=== PATIENT | female | born 1960 | race Caucasian/White ===

== ENCOUNTER 2016-08-13 07:11 | Outpatient (CLI) | payer OTHER | END 2016-08-13 07:12 | disposition home or self-care (01) | DX: E11.9 Type 2 diabetes mellitus without complications (principal); E55.9 Vitamin D deficiency, unspecified; Z79.899 Other long term (current) drug therapy ==

== ENCOUNTER 2016-10-27 09:28 | Outpatient (CLI) | payer OTHER | END 2016-10-27 09:29 | disposition home or self-care (01) | DX: R73.9 Hyperglycemia, unspecified (principal) ==

== ENCOUNTER 2016-11-19 08:03 | Outpatient (CLI) | payer OTHER ==
[2016-11-19 08:42] LABS: ALBUMIN/GLOBULIN RATIO 1.4 (1.0-2.2); BILIRUBIN,TOTAL 0.6 mg/dL (0.2-1.0); CALCIUM 9.2 mg/dL (8.5-10.3); CREATININE 0.5 mg/dL (0.4-1.0); TOTAL PROTEIN 6.8 g/dL (6.7-8.2)
[2016-11-19 09:38] LABS: HEMOGLOBIN A1C 1.21 g/dL
== END 2016-11-19 08:04 | disposition home or self-care (01) ==
LOC: LAB 08:03
PROVIDERS: ATTEND Physician Assistant Medical
DX: E11.65 Type 2 diabetes mellitus with hyperglycemia (principal); Z79.899 Other long term (current) drug therapy
CPT/HCPCS: 36415; 80053; 83036

== ENCOUNTER 2017-02-25 09:30 | Outpatient (CLI) | payer OTHER ==
[2017-02-25 10:00] LABS: BASOPHILS # (AUTO) 0.1 10^3/uL (0.0-0.1); BASOPHILS % (AUTO) 1.4 %; EOSINOPHILS # (AUTO) 0.2 10^3/uL (0.0-0.7); EOSINOPHILS % (AUTO) 3.1 %; HCT - HEMATOCRIT 46.2 % (37.0-47.0); LYMPHOCYTES # (AUTO) 2.1 10^3/uL (1.5-3.5); LYMPHOCYTES % (AUTO) 27.7 %; MEAN CORPUSCULAR HEMOGLOBIN 30.5 pg (27.0-31.0); MEAN CORPUSCULAR HGB CONC 34.6 g/dL (32.0-36.0); MEAN CORPUSCULAR VOLUME 88.1 fL (81.0-99.0); MEAN PLATELET VOLUME 7.4 fL (7.9-10.8); MONOCYTES # (AUTO) 0.6 10^3/uL (0.0-1.0); MONOCYTES % (AUTO) 7.3 %; NEUTROPHILS # (AUTO) 4.6 10^3/uL (1.5-6.6); NEUTROPHILS % (AUTO) 60.5 %; NUCLEATED RED BLOOD CELLS AUTO 0.2 /100WBC; RED BLOOD COUNT 5.25 10^6/uL (4.20-5.40); RED CELL DISTRIBUTION WIDTH 12.6 % (12.0-15.0); UNCORRECTED WHITE BLOOD COUNT 7.6 x10^3/uL; WHITE BLOOD COUNT 7.6 x10^3/uL (4.8-10.8)
[2017-02-25 10:21] LABS: ALBUMIN/GLOBULIN RATIO 1.6 (1.0-2.2); BILIRUBIN,TOTAL 0.7 mg/dL (0.2-1.0); BUN - BLOOD UREA NITROGEN 15 mg/dL (6-20); CALCIUM 9.2 mg/dL (8.5-10.3); CARBON DIOXIDE - CO2 27 mmol/L (21-32); CHLORIDE 104 mmol/L (101-111); CHOL/HDL RATIO 7.9 (<4.4); CHOLESTEROL 275 mg/dL; CREATININE 0.5 mg/dL (0.4-1.0); GFR - MDRD 128 (>89); GLUCOSE 117 mg/dL (70-100); HDL CHOLESTEROL 35 mg/dL; LDL/HDL RATIO 5.1 (<4.4); POTASSIUM 3.8 mmol/L (3.5-5.0); SODIUM 140 mmol/L (135-145); TOTAL PROTEIN 6.9 g/dL (6.7-8.2); TRIGLYCERIDES 303 mg/dL; VLDL CHOLESTEROL 61 mg/dL
[2017-02-25 10:26] LABS: HEMOGLOBIN A1C 0.72 g/dL
== END 2017-02-25 09:31 | disposition home or self-care (01) ==
LOC: LAB 09:30
PROVIDERS: ATTEND Physician Assistant Medical
DX: Z00.00 Encounter for general adult medical examination without abnormal findings (principal); E55.9 Vitamin D deficiency, unspecified; E11.9 Type 2 diabetes mellitus without complications; Z79.899 Other long term (current) drug therapy; F32.9 Major depressive disorder, single episode, unspecified; E78.2 Mixed hyperlipidemia
CPT/HCPCS: 36415; 80053; 80061; 82306; 83036; 84443; 85025

== ENCOUNTER 2017-07-03 16:34 | Outpatient (CLI) | payer OTHER ==
[2017-07-03 17:09] LABS: BASOPHILS # (AUTO) 0.1 10^3/uL (0.0-0.1); BASOPHILS % (AUTO) 1.4 %; EOSINOPHILS # (AUTO) 0.2 10^3/uL (0.0-0.7); EOSINOPHILS % (AUTO) 3.1 %; HGB - HEMOGLOBIN 15.4 g/dL (12.0-16.0); LYMPHOCYTES # (AUTO) 2.9 10^3/uL (1.5-3.5); LYMPHOCYTES % (AUTO) 36.8 %; MEAN CORPUSCULAR HEMOGLOBIN 30.4 pg (27.0-31.0); MEAN CORPUSCULAR HGB CONC 34.1 g/dL (32.0-36.0); MEAN CORPUSCULAR VOLUME 89.1 fL (81.0-99.0); MEAN PLATELET VOLUME 7.5 fL (7.9-10.8); MONOCYTES # (AUTO) 0.6 10^3/uL (0.0-1.0); MONOCYTES % (AUTO) 7.5 %; NEUTROPHILS # (AUTO) 4.1 10^3/uL (1.5-6.6); NEUTROPHILS % (AUTO) 51.2 %; PLT - PLATELET COUNT 208 10^3/uL (130-450); RED BLOOD COUNT 5.08 10^6/uL (4.20-5.40); RED CELL DISTRIBUTION WIDTH 12.6 % (12.0-15.0); WHITE BLOOD COUNT 7.9 x10^3/uL (4.8-10.8)
== END 2017-07-03 16:35 | disposition home or self-care (01) ==
LOC: LAB 16:34
PROVIDERS: ATTEND Physician Assistant Medical
DX: R07.89 Other chest pain (principal); R05 Cough; R10.13 Epigastric pain
CPT/HCPCS: 83690; 84484; 85025

== ENCOUNTER 2017-07-03 17:45 | Outpatient (CLI) | payer OTHER ==
--- NOTE | 2017-07-03 18:35 | XRAY Preliminary Report ---
Exam: XR CHEST 2 VIEW X-RAY IMPRESSION: Normal 2-view chest radiography. [facility] SITE ID: [id number]
--- NOTE | 2017-07-03 18:56 | XRAY Report ---
EXAM: CHEST RADIOGRAPHY EXAM DATE: 07/03/2017 05:54 PM. CLINICAL HISTORY: Nonproductive cough for one week. Intermittent chest pain since 0200 today. COMPARISON: 09/27/2008. TECHNIQUE: 2 views. FINDINGS: Lungs/Pleura: No focal opacities evident. No pleural effusion. No pneumothorax. Normal volumes. Mediastinum: Heart and mediastinal contours are unremarkable. Other: None. IMPRESSION: Normal 2-view chest radiography. [facility] Referring Provider Line: [phone] SITE ID: [id number]
== END 2017-07-03 17:46 | disposition home or self-care (01) ==
LOC: DI 17:45
PROVIDERS: ATTEND Physician Assistant Medical
DX: R07.89 Other chest pain (principal); F17.210 Nicotine dependence, cigarettes, uncomplicated; R05 Cough; R10.13 Epigastric pain
CPT/HCPCS: 71046; 83690; 84484; 85025

== ENCOUNTER 2017-07-05 15:17 | Emergency (ER) | payer OTHER ==
[2017-07-05 15:31] VITALS: BP 132/70
[2017-07-05] MEDS ORDERED: DEXAMETHASONE 10 MG/ML VIAL PO STA (15:55)
--- NOTE | 2017-07-05 16:06 | ED Physician Documentation ---
History of Present Illness - Stated complaint Stated Complaint: LIP SWELLING - Chief complaint Chief Complaint: General - History obtained from History obtained from: Patient - History of Present Illness Timing: Today, How many hours ago (5) Pain level max: 0 Pain level now: 0 Improved by: benadryl Worsened by: nothing - Additonal information Additional information: Patient is a 57-year-old female who presents to the emergency department with left lower lip swelling that started at approximately 11:30 AM today. Took Benadryl and it has not worsened. Stated last time she needed steroids. Unclear etiology. She is scheduled for endoscopy as a Inc. that she may have angioedema in her esophagus as well. She is not having any difficulty swallowing. No difficulty breathing. 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 HEENT: Tonsil/Adenoidectomy - Present Medications Home Medications: Ambulatory Orders Medication Instructions Recorded Confirmed Escitalopram Oxalate [Lexapro] 20 mg PO DAILY 03/14/14 07/05/17 Metoprolol Succinate [Toprol Xl] 25 mg PO BID 03/14/14 07/05/17 metFORMIN [Glucophage] 250 mg PO ACHS 03/14/14 07/05/17 Alprazolam [Xanax] 0.25 mg PO BID PRN 06/17/16 07/05/17 Aspirin 81 mg PO DAILY 06/17/16 07/05/17 Cholecalciferol (Vitamin D3) 8,000 unit PO DAILY 06/17/16 07/05/17 [Vitamin D] Epinephrine [Epipen 2-Matias] 0.3 mg IJ ONCE PRN 06/17/16 07/05/17 Omeprazole 10 - 20 mg PO DAILY 06/17/16 07/05/17 Sucralfate [Carafate] 07/05/17 predniSONE [Prednisone] 40 mg PO DAILY #10 tablet 07/05/17 - Allergies Allergies/Adverse Reactions: Allergies Allergy/AdvReac Type Severity Reaction Status Date / Time ciprofloxacin [From Cipro] Allergy Itching Verified 03/17/14 06:51 ciprofloxacin HCl * Allergy Itching Verified 03/17/14 06:51 [From Cipro] furosemide [From Lasix] Allergy Anaphylaxis Verified 03/17/14 06:51 olive oil Allergy Hives Verified 04/28/17 06:03 peanut Allergy Anaphylaxis Verified 03/17/14 06:51 Penicillins Allergy Hives Verified 03/17/14 06:51 shellfish derived Allergy Hives Verified 03/17/14 06:51 ibuprofen AdvReac Headache Verified 03/17/14 06:51 ct contrast Allergy Anaphylaxis Uncoded 03/17/14 06:51 - Social History Does the pt smoke?: Yes Smoking Status: Current every day smoker Does the pt drink ETOH?: No Does the pt have substance abuse?: No - Immunizations Immunizations are current?: Yes PD ED PE NORMAL - Vitals Vital signs reviewed: Yes - General General: Alert and oriented X 3, No acute distress - HEENT HEENT: Moist mucous membranes, Other (swelling L lower lip. normal intraoral exam. normal phonation. no stridor. no tongue swelling.) - Neck Neck: Supple, no meningeal sign - Cardiac Cardiac: RRR - Respiratory Respiratory: No respiratory distress, Clear bilaterally - Derm Derm: Warm and dry - Neuro Neuro: Alert and oriented X 3 - Psych Psych: Normal mood, Normal affect Results - Vitals Vitals: Vital Signs - 24 hr 07/05/17 15:25 Temperature 36.5 C Heart Rate 74 Respiratory 20 Rate Blood Pressure 132/70 H O2 Saturation 97 Oxygen O2 Source Room air PD MEDICAL DECISION MAKING - ED course Complexity details: considered differential, d/w patient ED course: Patient is a 57-year-old female with isolated swelling to left lower lip. Took Benadryl prior to arrival. Given Decadron here. No progression of symptoms. Will place on steroids for the next few days and have her follow-up with her doctor. She will return if she worsens. Patient counseled regarding signs and symptoms for which I believe and urgent re-evaluation would be necessary. Patient with good understanding of and agreement to plan and is comfortable going home at this time This document was made in part using voice recognition software. While efforts are made to proofread this document, sound alike and grammatical errors may occur. Departure - Departure Disposition: 01 Home, Self Care Clinical Impression: Angioedema Qualifiers: Encounter type: initial encounter Qualified Code(s): T78.3XXA - Angioneurotic edema, initial encounter Condition: Good Instructions: ED Angioedema Follow-Up: Madalyn Butts PA-C [Primary Care Provider] - Within 1 week Prescriptions: predniSONE [Prednisone] 40 mg PO DAILY #10 tablet Comments: Return if you worsen. the cause of your symptoms is unclear today.
[2017-07-05] MEDS ORDERED: CHERRY SYRUP 10 ML UDC PO ONE (16:08)
== END 2017-07-05 16:09 | disposition home or self-care (01) ==
LOC: ED 15:17
DX: T78.3XXA Angioneurotic edema, initial encounter (principal); E11.9 Type 2 diabetes mellitus without complications; Z79.84 Long term (current) use of oral hypoglycemic drugs; F17.200 Nicotine dependence, unspecified, uncomplicated; Z79.82 Long term (current) use of aspirin
CPT/HCPCS: 99283; A9270

== ENCOUNTER 2017-07-12 19:14 | Emergency (ER) | payer OTHER ==
[2017-07-12] MEDS ORDERED: LIDOCAINE 2%-EPI 1:100000 20 ML MDV SUBQ STA (21:36)
[2017-07-12] MEDS ORDERED: SULFAMETH/TRIMETH DS 800/160 MG TABLET PO STA (21:39)
[2017-07-12 22:08] VITALS: BP 144/84
--- NOTE | 2017-07-12 22:09 | ED Physician Documentation ---
PD HPI SKIN - Stated complaint Stated Complaint: FEVER/SORE - Chief complaint Chief Complaint: Wound - History obtained from History obtained from: Patient - History of Present Illness Timing - onset: How many days ago (2) Timing - details: Gradual onset, Still present Location: Genitals Quality / character: Painful, Swelling Associated symptoms: Fever Similar symptoms before: Has not had sx before Recently seen: Not recently seen - Additional information Additional information: Patient is a 57 year old diabetic female who is presenting to the emergency department for labial swelling. patient states that it has been going on for the last couple of days and has become progressively worse. Patient states that she felt like she had a fever so she decided that she should come in and get it checked. Review of Systems Constitutional: reports: Fever. denies: Chills, Myalgias, Fatigue Eyes: reports: Reviewed and negative Ears: reports: Reviewed and negative Nose: reports: Reviewed and negative Throat: reports: Reviewed and negative Cardiac: denies: Chest pain / pressure, Palpitations Respiratory: reports: Reviewed and negative GI: denies: Abdominal Pain, Nausea, Vomiting : denies: Dysuria, Frequency, Vaginal bleeding Skin: reports: Lesions Neurologic: denies: Generalized weakness, Focal weakness Immunocompromised: reports: Immunocompromised PD PAST MEDICAL HISTORY - Past Medical History Cardiovascular: High cholesterol, Other Neuro: Headache/migraine Endocrine/Autoimmune: Type 2 diabetes GI: GERD Psych: Depression Musculoskeletal: Osteoarthritis, Chronic back pain - Past Surgical History 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 HEENT: Tonsil/Adenoidectomy - Present Medications Home Medications: Ambulatory Orders Medication Instructions Recorded Confirmed Escitalopram Oxalate [Lexapro] 20 mg PO DAILY 03/14/14 07/05/17 Metoprolol Succinate [Toprol Xl] 25 mg PO BID 03/14/14 07/05/17 metFORMIN [Glucophage] 250 mg PO ACHS 03/14/14 07/05/17 Alprazolam [Xanax] 0.25 mg PO BID PRN 06/17/16 07/05/17 Aspirin 81 mg PO DAILY 06/17/16 07/05/17 Cholecalciferol (Vitamin D3) 8,000 unit PO DAILY 06/17/16 07/05/17 [Vitamin D] Epinephrine [Epipen 2-Matias] 0.3 mg IJ ONCE PRN 06/17/16 07/05/17 Omeprazole 10 - 20 mg PO DAILY 06/17/16 07/05/17 Sucralfate [Carafate] 07/05/17 predniSONE [Prednisone] 40 mg PO DAILY #10 tablet 07/05/17 Sulfamethox/Trimeth 800/160 1 each PO BID #14 tablet 07/12/17 [Bactrim Ds 800/160] - Allergies Allergies/Adverse Reactions: Allergies Allergy/AdvReac Type Severity Reaction Status Date / Time ciprofloxacin [From Cipro] Allergy Itching Verified 03/17/14 06:51 ciprofloxacin HCl * Allergy Itching Verified 03/17/14 06:51 [From Cipro] furosemide [From Lasix] Allergy Anaphylaxis Verified 03/17/14 06:51 olive oil Allergy Hives Verified 04/28/17 06:03 omeprazole [From Prilosec] Allergy Anaphylaxis Verified 07/12/17 19:41 peanut Allergy Anaphylaxis Verified 03/17/14 06:51 Penicillins Allergy Hives Verified 03/17/14 06:51 shellfish derived Allergy Hives Verified 03/17/14 06:51 ibuprofen AdvReac Headache Verified 03/17/14 06:51 ct contrast Allergy Anaphylaxis Uncoded 03/17/14 06:51 - Social History Does the pt smoke?: Yes Smoking Status: Current every day smoker Does the pt drink ETOH?: No Does the pt have substance abuse?: No - Immunizations Immunizations are current?: Yes PD ED PE NORMAL - Vitals Vital signs reviewed: Yes - General General: Alert and oriented X 3, No acute distress - HEENT HEENT: Atraumatic, PERRL - Neck Neck: Supple, no meningeal sign - Cardiac Cardiac: RRR - Respiratory Respiratory: No respiratory distress - Abdomen Abdomen: Soft, Non tender, Non distended - Extremities Extremities: No deformity, Normal ROM s pain - Neuro Neuro: Alert and oriented X 3, No motor deficit, No sensory deficit, Normal speech - Psych Psych: Normal mood PD ED PE EXPANDED - Female Female : Skin lesions (tenderness, erythema and swelling of right labia majora ). No: Vaginal Bleeding, Vaginal Discharge Results - Vitals Vitals: Vital Signs - 24 hr 07/12/17 07/12/17 07/12/17 19:36 20:57 22:08 Temperature 36.6 C 36.6 C 37.0 C Heart Rate 102 H 101 H 102 H Respiratory 16 12 18 Rate Blood Pressure 127/75 147/89 H 144/84 H O2 Saturation 96 96 96 Oxygen O2 Source Room air - Labs Labs: Laboratory Tests 07/12/17 21:10 POC Whole Bld Glucose 153 H Procedures - Abscess I&D (location) right labia majora Preparation: Confirmed with ultrasound, Alcohol, Lidocaine 2 %, With epi Incision: Incised with scalpel, Purulent drainage, Irrigated Other: Pt tolerated well, Antibiotic prescribed PD MEDICAL DECISION MAKING - ED course Complexity details: reviewed old records, re-evaluated patient, considered differential, d/w patient ED course: Patient was seen and examined at bedside. Fingerstick was performed and was within normal limits. I/D was performed as described above. patient was started on bactrim. Patient required no further work up and was stable for discharge with outpatient follow up. Departure - Departure Disposition: 01 Home, Self Care Clinical Impression: Abscess Condition: Good Instructions: ED Abscess IandD Follow-Up: Madalyn Butts PA-C [Primary Care Provider] - Within 3 Days Prescriptions: Sulfamethox/Trimeth 800/160 [Bactrim Ds 800/160] 1 each PO BID #14 tablet Comments: Your symptoms today are being caused by a labial abscess. It was drained today and you were started on antibiotics. You should soak in a bath to aid in draining. You should follow up with your doctor for a wound check. You may return to the emergency department at any time for new, worsening or uncontrollable symptoms. Discharge Date/Time: 07/12/17 22:14
== END 2017-07-12 22:14 | disposition home or self-care (01) ==
LOC: ED 19:14
DX: N76.4 Abscess of vulva (principal); E11.9 Type 2 diabetes mellitus without complications; Z79.84 Long term (current) use of oral hypoglycemic drugs; F17.200 Nicotine dependence, unspecified, uncomplicated; Z79.82 Long term (current) use of aspirin
CPT/HCPCS: 56405; 99283; A9270

== ENCOUNTER 2017-07-24 07:49 | Day surgery (SDC) | payer OTHER ==
[2017-07-24] MEDS ORDERED: LACTATED RINGERS 1,000 ML IV ONE (08:15)
[2017-07-24] MEDS ORDERED: BENZOCAINE/TETRACAINE/BUTAMBEN SPRAY 56 GM TOP ONE (09:10)
[2017-07-24] MEDS ORDERED: MIDAZOLAM 2 MG/2 ML VIAL IVP ONE (09:23)
[2017-07-24] MEDS ORDERED: fentaNYL 100 MCG/2 ML VIAL IVP ONE (09:23)
[2017-07-24 09:49] VITALS: BP 116/70
== END 2017-07-24 07:50 | disposition home or self-care (01) ==
LOC: SDS 07:49
PROVIDERS: ATTEND Surgery
PROC: 0DB68ZX Excision of Stomach, Via Natural or Artificial Opening Endoscopic, Diagnostic (ICD-10-PCS; 2017-07-24)
PROC: 0DB58ZX Excision of Esophagus, Via Natural or Artificial Opening Endoscopic, Diagnostic (ICD-10-PCS; principal; 2017-07-24 09:00)
DX: R10.13 Epigastric pain (principal); K21.9 Gastro-esophageal reflux disease without esophagitis; R13.10 Dysphagia, unspecified; K25.9 Gastric ulcer, unspecified as acute or chronic, without hemorrhage or perforation; K20.9 Esophagitis, unspecified; F17.210 Nicotine dependence, cigarettes, uncomplicated; E11.9 Type 2 diabetes mellitus without complications; Z91.010 Allergy to peanuts; Z88.0 Allergy status to penicillin; Z91.013 Allergy to seafood
CPT/HCPCS: 43239; 87081; A9270; J7120; 80076

== ENCOUNTER 2017-12-16 11:10 | Outpatient (CLI) | payer OTHER ==
[2017-12-16 11:57] LABS: HB2 TOTAL 17.6 g/dL; HEMOGLOBIN A1C 0.69 g/dL; HEMOGLOBIN A1C % 5.7 % (4.6-6.2)
== END 2017-12-16 11:11 | disposition home or self-care (01) ==
LOC: LAB 11:10
PROVIDERS: ATTEND Physician Assistant Medical
DX: E11.9 Type 2 diabetes mellitus without complications (principal); Z79.899 Other long term (current) drug therapy
CPT/HCPCS: 36415; 82947; 83036

== ENCOUNTER 2018-03-10 10:10 | Outpatient (CLI) | payer OTHER ==
[2018-03-10 11:06] LABS: BASOPHILS # (AUTO) 0.1 10^3/uL (0.0-0.1); BASOPHILS % (AUTO) 1.1 %; EOSINOPHILS # (AUTO) 0.3 10^3/uL (0.0-0.7); EOSINOPHILS % (AUTO) 4.1 %; HGB - HEMOGLOBIN 15.3 g/dL (12.0-16.0); LYMPHOCYTES # (AUTO) 1.9 10^3/uL (1.5-3.5); LYMPHOCYTES % (AUTO) 28.3 %; MEAN CORPUSCULAR HEMOGLOBIN 31.2 pg (27.0-31.0); MEAN CORPUSCULAR HGB CONC 35.1 g/dL (32.0-36.0); MEAN CORPUSCULAR VOLUME 88.8 fL (81.0-99.0); MEAN PLATELET VOLUME 7.5 fL (7.9-10.8); MONOCYTES # (AUTO) 0.5 10^3/uL (0.0-1.0); NEUTROPHILS # (AUTO) 3.9 10^3/uL (1.5-6.6); NEUTROPHILS % (AUTO) 58.5 %; PLT - PLATELET COUNT 175 10^3/uL (130-450); RED CELL DISTRIBUTION WIDTH 12.9 % (12.0-15.0); WHITE BLOOD COUNT 6.7 x10^3/uL (4.8-10.8)
[2018-03-10 11:31] LABS: ALBUMIN 4.3 g/dL (3.2-5.5); ALBUMIN/GLOBULIN RATIO 1.5 (1.0-2.2); ALKALINE PHOSPHATASE 80 IU/L (42-121); ALT ALANINE AMINOTRANSFERASE 63 IU/L (10-60); AST ASPARTATE AMINOTRANSFERASE 49 IU/L (10-42); BILIRUBIN,TOTAL 0.5 mg/dL (0.2-1.0); BUN - BLOOD UREA NITROGEN 12 mg/dL (6-20); CALCIUM 9.2 mg/dL (8.5-10.3); CARBON DIOXIDE - CO2 30 mmol/L (21-32); CHLORIDE 103 mmol/L (101-111); CHOL/HDL RATIO 7.6 (<4.4); CHOLESTEROL 252 mg/dL; CREATININE 0.6 mg/dL (0.4-1.0); GFR - MDRD 103 (>89); GLUCOSE 117 mg/dL (70-100); HDL CHOLESTEROL 33 mg/dL; LDL CHOLESTEROL,CALCULATED 153 mg/dL; LDL/HDL RATIO 4.6 (<4.4); SODIUM 141 mmol/L (135-145); TOTAL PROTEIN 7.2 g/dL (6.7-8.2); VLDL CHOLESTEROL 66 mg/dL
[2018-03-10 11:37] LABS: HB2 TOTAL 15.9 g/dL; HEMOGLOBIN A1C 0.65 g/dL; HEMOGLOBIN A1C % 5.9 % (4.6-6.2)
== END 2018-03-10 10:11 | disposition home or self-care (01) ==
LOC: LAB 10:10
PROVIDERS: ATTEND Physician Assistant Medical
DX: E55.9 Vitamin D deficiency, unspecified (principal); E78.2 Mixed hyperlipidemia; E11.9 Type 2 diabetes mellitus without complications; Z79.899 Other long term (current) drug therapy; F32.9 Major depressive disorder, single episode, unspecified
CPT/HCPCS: 36415; 80053; 80061; 82306; 83036; 83721; 84443; 85025

== ENCOUNTER 2018-03-12 08:40 | Outpatient (CLI) | payer OTHER ==
[2018-03-12 11:13] LABS: BILIRUBIN,URINE NEGATIVE (NEGATIVE); GLUCOSE, URINE (UA) NEGATIVE (NEGATIVE); KETONES,URINE (UA) NEGATIVE (NEGATIVE); LEUKOCYTE ESTERASE, URINE NEGATIVE (NEGATIVE); NITRITE,URINE NEGATIVE (NEGATIVE); OCCULT BLOOD,URINE TRACE-INTA (NEGATIVE); PH,URINE 5.5 PH (5.0-7.5); PROTEIN,URINE NEGATIVE (NEGATIVE); UROBILINOGEN,URINE 0.2 (NORMAL) E.U./dL (NORMAL)
[2018-03-12 11:14] LABS: CLARITY,URINE CLEAR (CLEAR)
== END 2018-03-12 08:41 | disposition home or self-care (01) ==
LOC: LAB.R 08:40
PROVIDERS: ATTEND Physician Assistant Medical
DX: Z00.00 Encounter for general adult medical examination without abnormal findings (principal); E11.9 Type 2 diabetes mellitus without complications
CPT/HCPCS: 81001; 81003; 82043; 87086

== ENCOUNTER 2018-04-23 09:58 | Outpatient (CLI) | payer OTHER | END 2018-04-23 09:59 | disposition home or self-care (01) | LOC: SC 09:58 | PROVIDERS: ATTEND Internal Medicine Pulmonary Disease | DX: G47.10 Hypersomnia, unspecified (principal); R06.83 Snoring; G47.8 Other sleep disorders | CPT/HCPCS: 99203; 99212 ==

== ENCOUNTER 2018-05-20 18:56 | Outpatient (CLI) | payer OTHER | END 2018-05-20 18:57 | disposition home or self-care (01) | LOC: SC 18:56 | PROVIDERS: ATTEND Internal Medicine Pulmonary Disease | DX: G47.33 Obstructive sleep apnea (adult) (pediatric) (principal); G47.61 Periodic limb movement disorder | CPT/HCPCS: 95810 ==

== ENCOUNTER 2018-06-25 11:20 | Outpatient (CLI) | payer OTHER | END 2018-06-25 11:21 | disposition home or self-care (01) | LOC: SC 11:20 | PROVIDERS: ATTEND Internal Medicine Pulmonary Disease | DX: G47.33 Obstructive sleep apnea (adult) (pediatric) (principal) | CPT/HCPCS: 99212; 99213 ==

== ENCOUNTER 2018-06-30 10:20 | Outpatient (CLI) | payer BC ==
[2018-06-30 10:46] LABS: ALBUMIN 4.2 g/dL (3.2-5.5); BILIRUBIN,DIRECT 0.1 mg/dL (0.1-0.5); BILIRUBIN,TOTAL 0.8 mg/dL (0.2-1.0); TOTAL PROTEIN 7.3 g/dL (6.7-8.2)
[2018-06-30 11:16] LABS: HB2 TOTAL 17.2 g/dL; HEMOGLOBIN A1C 0.73 g/dL
== END 2018-06-30 10:21 | disposition home or self-care (01) ==
LOC: LAB 10:20
PROVIDERS: ATTEND Physician Assistant Medical
DX: E11.9 Type 2 diabetes mellitus without complications (principal); Z79.899 Other long term (current) drug therapy; R79.89 Other specified abnormal findings of blood chemistry
CPT/HCPCS: 36415; 80076; 82947; 83036

== ENCOUNTER 2018-07-05 15:38 | Outpatient (CLI) | payer BC ==
[2018-07-06 13:22] LABS: HEPATITIS A IGM NON-REACTIVE (NON-REACTIVE); HEPATITIS B CORE ANTIBODY IGM NON-REACTIVE (NON-REACTIVE); HEPATITIS B SURFACE ANTIGEN NON-REACTIVE (NON-REACTIVE); HEPATITIS C ANTIBODY NON-REACTIVE (NON-REACTIVE)
== END 2018-07-05 15:39 | disposition home or self-care (01) ==
LOC: LAB 15:38
PROVIDERS: ATTEND Physician Assistant Medical
DX: R79.89 Other specified abnormal findings of blood chemistry (principal)
CPT/HCPCS: 36415; 80074

== ENCOUNTER 2018-07-17 06:51 | Outpatient (CLI) | payer BC ==
--- NOTE | 2018-07-17 12:41 | Ultrasound Report ---
Reason: ELEVATED LFT'S Procedure Date: 07/17/2018 Accession Number: [id number] / [id number] Procedure: US - Abdomen Limited CPT Code: FULL RESULT: EXAM: ABDOMEN ULTRASOUND LIMITED, RUQ EXAM DATE: 07/17/2018 08:11 AM. CLINICAL HISTORY: Elevated liver function tests. COMPARISON: None. TECHNIQUE: Real-time scanning was performed with static images obtained. FINDINGS: Liver: Normal in size with increased echogenicity which limits evaluation for underlying masses though none is seen. There is focal fatty sparing near the gallbladder fossa which confirms hepatic steatosis. The right lobe of the liver measures at least 20 cm. Main portal vein flow: Hepatopetal. Gallbladder: Normal. No stones, wall thickening, or sonographic Mina's sign. Biliary System: CBD measures 4 mm. No intrahepatic or extrahepatic ductal dilatation. Other: None. IMPRESSION: Hepatic steatosis. [facility]
== END 2018-07-17 06:52 | disposition home or self-care (01) ==
LOC: DI 06:51
PROVIDERS: ATTEND Physician Assistant Medical
DX: K76.0 Fatty (change of) liver, not elsewhere classified (principal)
CPT/HCPCS: 76705

== ENCOUNTER 2018-09-11 15:41 | Outpatient (CLI) | payer BC | END 2018-09-11 15:42 | disposition home or self-care (01) | LOC: SC 15:41 | PROVIDERS: ATTEND Nurse Practitioner Family | DX: G47.33 Obstructive sleep apnea (adult) (pediatric) (principal) | CPT/HCPCS: 99212; 99213 ==

== ENCOUNTER 2018-10-04 15:41 | Outpatient (CLI) | payer BC ==
--- NOTE | 2018-10-05 10:28 | XRAY Report ---
Reason: DELTOID TENDINITIS Procedure Date: 10/04/2018 Accession Number: [id number] / [id number] Procedure: XR - Humerus RT CPT Code: FULL RESULT: EXAM: RIGHT HUMERUS RADIOGRAPHY EXAM DATE: 10/04/2018 05:08 PM. CLINICAL HISTORY: Deltoid tendinitis. COMPARISON: None. TECHNIQUE: 2 views. FINDINGS: Bones: Normal. No fractures or bone lesions. Joints: Normal. No effusions or subluxations in the visualized shoulder or elbow joints. Soft Tissues: No abnormal soft tissue calcifications are detected. No soft tissue swelling. IMPRESSION: Normal humerus radiography. [facility]
== END 2018-10-04 15:42 | disposition home or self-care (01) ==
LOC: DI 15:41
PROVIDERS: ATTEND Family Medicine
DX: M75.81 Other shoulder lesions, right shoulder (principal)

== ENCOUNTER 2018-12-19 15:49 | Outpatient (CLI) | payer BC | END 2018-12-19 15:50 | disposition home or self-care (01) | LOC: SC 15:49 | PROVIDERS: ATTEND Nurse Practitioner Family | DX: G47.33 Obstructive sleep apnea (adult) (pediatric) (principal) | CPT/HCPCS: 99212; 99214 ==

== ENCOUNTER 2019-05-12 10:18 | Outpatient (CLI) | payer BC ==
[2019-05-12 10:58] LABS: BASOPHILS # (AUTO) 0.1 10^3/uL (0.0-0.1); BASOPHILS % (AUTO) 1.1 %; EOSINOPHILS # (AUTO) 0.2 10^3/uL (0.0-0.7); EOSINOPHILS % (AUTO) 2.7 %; HGB - HEMOGLOBIN 15.6 g/dL (12.0-16.0); LYMPHOCYTES # (AUTO) 1.9 10^3/uL (1.5-3.5); LYMPHOCYTES % (AUTO) 28.6 %; MEAN CORPUSCULAR HEMOGLOBIN 30.1 pg (27.0-31.0); MEAN CORPUSCULAR HGB CONC 34.2 g/dL (32.0-36.0); MEAN PLATELET VOLUME 9.8 fL (7.9-10.8); MONOCYTES # (AUTO) 0.5 10^3/uL (0.0-1.0); MONOCYTES % (AUTO) 6.8 %; NEUTROPHILS % (AUTO) 60.2 %; PLT - PLATELET COUNT 158 10^3/uL (130-450); RED BLOOD COUNT 5.18 10^6/uL (4.20-5.40); RED CELL DISTRIBUTION WIDTH 11.9 % (12.0-15.0); WHITE BLOOD COUNT 6.6 x10^3/uL (4.8-10.8)
[2019-05-12 11:17] LABS: ALBUMIN 4.2 g/dL (3.2-5.5); ALBUMIN/GLOBULIN RATIO 1.4 (1.0-2.2); ALKALINE PHOSPHATASE 99 IU/L (42-121); ALT ALANINE AMINOTRANSFERASE 95 IU/L (10-60); AST ASPARTATE AMINOTRANSFERASE 105 IU/L (10-42); BILIRUBIN,TOTAL 0.8 mg/dL (0.2-1.0); BUN - BLOOD UREA NITROGEN 11 mg/dL (6-20); CALCIUM 9.3 mg/dL (8.5-10.3); CARBON DIOXIDE - CO2 27 mmol/L (21-32); CHLORIDE 100 mmol/L (101-111); CHOL/HDL RATIO 8.9 (<4.4); CHOLESTEROL 285 mg/dL; CREATININE 0.7 mg/dL (0.4-1.0); GFR - MDRD 86 (>89); GLUCOSE 260 mg/dL (70-100); HDL CHOLESTEROL 32 mg/dL; SODIUM 138 mmol/L (135-145); TOTAL PROTEIN 7.3 g/dL (6.7-8.2)
[2019-05-12 11:35] LABS: LDL CHOLESTEROL,DIRECT 175 mg/dL; LDLD/HDL RATIO 5.5 (<4.4)
[2019-05-12 12:05] LABS: HB2 TOTAL 15.8 g/dL; HEMOGLOBIN A1C 1.26 g/dL; HEMOGLOBIN A1C % 9.4 % (4.6-6.2)
[2019-05-12 13:02] LABS: THYROID STIMULATING HORMONE 0.96 uIU/mL (0.34-5.60)
[2019-05-12 13:05] LABS: FREE T4 (FREE THYROXINE) 0.77 ng/dL (0.58-1.64)
== END 2019-05-12 10:19 | disposition home or self-care (01) ==
LOC: LAB 10:18
PROVIDERS: ATTEND Family Medicine
DX: G47.33 Obstructive sleep apnea (adult) (pediatric) (principal); E11.9 Type 2 diabetes mellitus without complications; E66.3 Overweight; K21.9 Gastro-esophageal reflux disease without esophagitis; E55.9 Vitamin D deficiency, unspecified; E78.2 Mixed hyperlipidemia
CPT/HCPCS: 36415; 80053; 80061; 82306; 83036; 83721; 84439; 84443; 84481; 85025

== ENCOUNTER 2019-05-31 14:52 | Outpatient (CLI) | payer BC | END 2019-05-31 14:53 | disposition home or self-care (01) | LOC: RT 14:52 | PROVIDERS: ATTEND Internal Medicine Gastroenterology | DX: I49.3 Ventricular premature depolarization (principal); E11.9 Type 2 diabetes mellitus without complications | CPT/HCPCS: 93005 ==

== ENCOUNTER 2019-06-11 07:15 | Day surgery (SDC) | payer BC ==
[2019-06-11] MEDS ORDERED: MIDAZOLAM 2 MG/2 ML VIAL IVP ONE (07:16)
[2019-06-11] MEDS ORDERED: fentaNYL 250 MCG/5 ML VIAL IVP ONE (07:16)
[2019-06-11] MEDS ORDERED: LACTATED RINGERS 1,000 ML IV ONE (07:20)
[2019-06-11] MEDS ORDERED: LIDO GARGLE 30 ML BOTTLE ONE (09:21)
[2019-06-11] MEDS ORDERED: LIDO GARGLE 30 ML BOTTLE PO ONE (09:33)
[2019-06-11 11:15] VITALS: BP 111/80
== END 2019-06-11 07:16 | disposition home or self-care (01) ==
LOC: SDS 07:15
PROVIDERS: ATTEND Internal Medicine Gastroenterology
PROC: 0DB98ZZ Excision of Duodenum, Via Natural or Artificial Opening Endoscopic (ICD-10-PCS; 2019-06-11)
PROC: 0DB48ZZ Excision of Esophagogastric Junction, Via Natural or Artificial Opening Endoscopic (ICD-10-PCS; 2019-06-11)
PROC: 0DBN8ZZ Excision of Sigmoid Colon, Via Natural or Artificial Opening Endoscopic (ICD-10-PCS; principal; 2019-06-11 08:30)
PROC: 0DBL8ZZ Excision of Transverse Colon, Via Natural or Artificial Opening Endoscopic (ICD-10-PCS; 2019-06-11 08:30)
DX: Z12.11 Encounter for screening for malignant neoplasm of colon (principal); D12.3 Benign neoplasm of transverse colon; D12.5 Benign neoplasm of sigmoid colon; K21.9 Gastro-esophageal reflux disease without esophagitis; K29.70 Gastritis, unspecified, without bleeding; K22.8 Other specified diseases of esophagus; K31.7 Polyp of stomach and duodenum; I49.3 Ventricular premature depolarization; Z87.11 Personal history of peptic ulcer disease; Z80.0 Family history of malignant neoplasm of digestive organs

== ENCOUNTER 2019-07-09 14:21 | Outpatient (CLI) | payer BC ==
--- NOTE | 2019-07-10 09:03 | Mammography Report ---
Reason: SREENING MAMMO Procedure Date: 07/09/2019 Accession Number: [id number] / [id number] Procedure: THE[facility]ORE - Screening Mammo w/Aaron CPT Code: Final Report FULL RESULT: EXAM: Screening Mammo w/Aaron DATE: 07/09/2019 3:04 PM CLINICAL HISTORY: Screening encounter. TECHNIQUE: (B) - Bilateral CC and MLO views were obtained. COMPARISON: 05/03/2016 through 01/07/2014. PARENCHYMAL PATTERN: (A) - The breast(s) demonstrate(s) scattered fibroglandular densities. FINDINGS: There are no suspicious masses, calcifications, or areas of distortion. IMPRESSION: Negative examination. BI-RADS category 1. RECOMMENDATION: (ANNUAL) - Recommend routine annual screening mammography. BI-RADS CATEGORY: (1) - Negative. STANDARD QUALIFYING STATEMENTS: 1. This examination was not reviewed with the aid of Computer-Aided Detection (CAD). 2. A negative or benign imaging report should not preclude biopsy if clinically suspicious findings are present. 3. Dense breasts may obscure an underlying neoplasm. 4. This examination was reviewed with the aid of 3D breast imaging (tomosynthesis).
== END 2019-07-09 14:22 | disposition home or self-care (01) ==
LOC: DI 14:21
DX: Z12.31 Encounter for screening mammogram for malignant neoplasm of breast (principal)
CPT/HCPCS: 77063; 77067

== ENCOUNTER 2019-07-09 14:22 | Outpatient (CLI) | payer BC ==
--- NOTE | 2019-07-12 08:54 | DEXA Report ---
Reason: SCREENING FOR OSTEOPOROSIS Procedure Date: 07/09/2019 Accession Number: [id number] / [id number] Procedure: DEX - Dexa Spine and/or Hip CPT Code: Final Report FULL RESULT: EXAM: Dexa Spine and/or Hip DATE: 07/09/2019 5:57 PM CLINICAL HISTORY: SCREENING FOR OSTEOPOROSIS TECHNIQUE: Dual energy x-ray absorptiometry (DXA) was performed on a Bubbleball System. Regions measured are the AP Spine, femoral neck, and if needed forearm. COMPARISON: None. In accordance with the International Society for Clinical Densitometry (ISCD) guidelines, data from previous exams may be reanalyzed using current recommendations and techniques. This is done to allow a more accurate basis for comparison with the current study. FINDINGS: The data for the lumbar spine is as follows: BMD (g/cm/cm) T-SCORE Z-SCORE REGION L1 1.018 -0.9 -0.5 L2 1.136 -0.5 -0.1 L3 1.148 -0.4 0.0 L4 1.141 -0.5 0.0 TOTAL 1.113 -0.6 -0.1 NOTE: All evaluable vertebrae are used for classification The data for the hip is as follows: BMD (g/cm/cm) T-SCORE Z-SCORE REGION Neck 0.994 -0.3 0.5 TOTAL 1.003 0.0 0.4 NOTE: The femoral neck or total proximal femur, whichever is lowest, is used for classification. IMPRESSION: THE WHO CLASSIFICATION BASED ON THE INTERNATIONAL REFERENCE STANDARD IS NORMAL. THE FRACTURE RISK IS NOT INCREASED. RECOMMENDATION: Patients with diagnosis of osteoporosis or osteopenia should have regular bone mineral density assessment. For those eligible for Medicare, routine testing is allowed once every 2 years. Testing frequency can be increased for patients who have rapidly progressing disease or for those who are receiving medical therapy to restore bone mass. COMMENT: World Health Organization (WHO) definitions for osteoporosis and osteopenia: NORMAL BMD: T-score at -1.0 or higher, fracture risk is low OSTEOPENIA BMD: T-score between -1.0 and -2.5, fracture risk is increased. OSTEOPOROSIS BMD: T-score at -2.5 or lower, fracture risk is high. National Osteoporosis Foundation recommends: 1. Obtain adequate dietary calcium (at least 1200 mg per day) and vitamin D (400-800 international units per day). 2. Participate, as appropriate, in regular weightbearing and muscle-strengthening exercise. 3. Avoid tobacco use and reduce alcohol and caffeine intake. 4. For more detailed information see the website at www.NOF.org.
== END 2019-07-09 14:23 | disposition home or self-care (01) ==
LOC: DI 14:22
PROVIDERS: ATTEND Family Medicine
DX: Z13.820 Encounter for screening for osteoporosis (principal)
CPT/HCPCS: 77080

== ENCOUNTER 2019-07-22 14:35 | Outpatient (CLI) | payer BC ==
[2019-07-22 15:03] LABS: CALCIUM 9.2 mg/dL (8.5-10.3); CREATININE 0.7 mg/dL (0.4-1.0)
[2019-07-22 15:23] LABS: HB2 TOTAL 15.7 g/dL; HEMOGLOBIN A1C 0.98 g/dL; HEMOGLOBIN A1C % 7.9 % (4.6-6.2)
== END 2019-07-22 14:36 | disposition home or self-care (01) ==
LOC: LAB 14:35
PROVIDERS: ATTEND Family Medicine
DX: E11.9 Type 2 diabetes mellitus without complications (principal)
CPT/HCPCS: 36415; 80048; 83036

== ENCOUNTER 2020-07-25 10:10 | Outpatient (CLI) | payer BC ==
[2020-07-25 10:31] LABS: BASOPHILS # (AUTO) 0.1 10^3/uL (0.0-0.1); EOSINOPHILS # (AUTO) 0.2 10^3/uL (0.0-0.7); EOSINOPHILS % (AUTO) 2.8 %; HGB - HEMOGLOBIN 16.5 g/dL (12.0-16.0); LYMPHOCYTES # (AUTO) 2.5 10^3/uL (1.5-3.5); LYMPHOCYTES % (AUTO) 36.2 %; MEAN CORPUSCULAR HEMOGLOBIN 31.1 pg (27.0-31.0); MEAN CORPUSCULAR VOLUME 91.7 fL (81.0-99.0); MEAN PLATELET VOLUME 9.8 fL (7.9-10.8); MONOCYTES # (AUTO) 0.5 10^3/uL (0.0-1.0); NEUTROPHILS # (AUTO) 3.7 10^3/uL (1.5-6.6); NEUTROPHILS % (AUTO) 52.6 %; PLT - PLATELET COUNT 191 10^3/uL (130-450)
[2020-07-25 10:42] LABS: MICROALBUM/CREATININE RATIO,UR 2.1 ug/mg (<30.0); MICROALBUMIN,URINE 0.3 mg/dL (0-300.0)
[2020-07-25 11:40] LABS: ALBUMIN 4.2 g/dL (3.2-5.5); ALBUMIN/GLOBULIN RATIO 1.5 (1.0-2.2); ALKALINE PHOSPHATASE 87 IU/L (42-121); ALT ALANINE AMINOTRANSFERASE 92 IU/L (10-60); AST ASPARTATE AMINOTRANSFERASE 81 IU/L (10-42); BILIRUBIN,TOTAL 0.7 mg/dL (0.2-1.0); BUN - BLOOD UREA NITROGEN 15 mg/dL (6-20); CALCIUM 9.5 mg/dL (8.5-10.3); CARBON DIOXIDE - CO2 26 mmol/L (21-32); CHLORIDE 102 mmol/L (101-111); CHOL/HDL RATIO 8.2 (<4.4); CHOLESTEROL 294 mg/dL; CREATININE 0.7 mg/dL (0.4-1.0); GLUCOSE 122 mg/dL (70-100); HDL CHOLESTEROL 36 mg/dL; LDL CHOLESTEROL,CALCULATED 196 mg/dL; LDL/HDL RATIO 5.4 (<4.4); VLDL CHOLESTEROL 62 mg/dL
[2020-07-25 11:51] LABS: HEMOGLOBIN A1c% 6.8 % (4.27-6.07)
== END 2020-07-25 10:11 | disposition home or self-care (01) ==
LOC: LAB 10:10
PROVIDERS: ATTEND Family Medicine
DX: E11.9 Type 2 diabetes mellitus without complications (principal); K76.0 Fatty (change of) liver, not elsewhere classified; E78.2 Mixed hyperlipidemia; E55.9 Vitamin D deficiency, unspecified; F32.9 Major depressive disorder, single episode, unspecified; I49.3 Ventricular premature depolarization; R53.83 Other fatigue
CPT/HCPCS: 36415; 80053; 80061; 82043; 82306; 82570; 83036; 83721; 84443; 85025

== ENCOUNTER 2021-02-27 12:49 | Outpatient (CLI) | payer BC ==
[2021-02-27 13:26] LABS: CALCIUM 9.3 mg/dL (8.5-10.3); CREATININE 0.6 mg/dL (0.4-1.0); POTASSIUM 4.1 mmol/L (3.5-5.0)
[2021-02-27 13:31] LABS: CREATININE,URINE 141.4 mg/dL; MICROALBUM/CREATININE RATIO,UR 2.1 ug/mg (<30.0); MICROALBUMIN,URINE 0.3 mg/dL (0-300.0)
[2021-02-27 14:27] LABS: ESTIMATED AVERAGE GLUCOSE 157 mg/dL (70-100); HEMOGLOBIN A1c% 7.1 % (4.27-6.07)
== END 2021-02-27 12:50 | disposition home or self-care (01) ==
LOC: LAB 12:49
PROVIDERS: ATTEND Family Medicine
DX: E11.9 Type 2 diabetes mellitus without complications (principal); Z68.30 Body mass index [BMI] 30.0-30.9, adult
CPT/HCPCS: 36415; 80048; 82043; 82570; 83036

== ENCOUNTER 2021-05-30 09:52 | Outpatient (CLI) | payer BC ==
[2021-05-30 10:12] LABS: BASOPHILS # (AUTO) 0.1 10^3/uL (0.0-0.1); EOSINOPHILS # (AUTO) 0.3 10^3/uL (0.0-0.7); EOSINOPHILS % (AUTO) 4.1 %; HCT - HEMATOCRIT 43.5 % (37.0-47.0); HGB - HEMOGLOBIN 15.8 g/dL (12.0-16.0); LYMPHOCYTES # (AUTO) 2.4 10^3/uL (1.5-3.5); LYMPHOCYTES % (AUTO) 35.1 %; MEAN CORPUSCULAR HEMOGLOBIN 32.4 pg (27.0-31.0); MEAN CORPUSCULAR HGB CONC 36.3 g/dL (32.0-36.0); MEAN CORPUSCULAR VOLUME 89.1 fL (81.0-99.0); MEAN PLATELET VOLUME 9.9 fL (7.9-10.8); MONOCYTES # (AUTO) 0.4 10^3/uL (0.0-1.0); MONOCYTES % (AUTO) 6.3 %; NEUTROPHILS # (AUTO) 3.6 10^3/uL (1.5-6.6); NEUTROPHILS % (AUTO) 52.9 %; PLT - PLATELET COUNT 157 10^3/uL (130-450); RED BLOOD COUNT 4.88 10^6/uL (4.20-5.40); RED CELL DISTRIBUTION WIDTH 11.9 % (12.0-15.0); WHITE BLOOD COUNT 6.8 x10^3/uL (4.8-10.8)
[2021-05-30 10:29] LABS: ALBUMIN 3.9 g/dL (3.2-5.5); ALBUMIN/GLOBULIN RATIO 1.4 (1.0-2.2); ALKALINE PHOSPHATASE 108 IU/L (42-121); ALT ALANINE AMINOTRANSFERASE 82 IU/L (10-60); AST ASPARTATE AMINOTRANSFERASE 78 IU/L (10-42); BILIRUBIN,TOTAL 0.8 mg/dL (0.2-1.0); BUN - BLOOD UREA NITROGEN 11 mg/dL (6-20); CALCIUM 9.1 mg/dL (8.5-10.3); CARBON DIOXIDE - CO2 25 mmol/L (21-32); CHLORIDE 102 mmol/L (101-111); CHOL/HDL RATIO 7.9 (<4.4); CHOLESTEROL 261 mg/dL; CREATININE 0.6 mg/dL (0.4-1.0); GFR - MDRD 102 (>89); GLUCOSE 209 mg/dL (70-100); HDL CHOLESTEROL 33 mg/dL; LDL CHOLESTEROL,CALCULATED 180 mg/dL; LDL/HDL RATIO 5.5 (<4.4); POTASSIUM 4.1 mmol/L (3.5-5.0); SODIUM 138 mmol/L (135-145); TOTAL PROTEIN 6.6 g/dL (6.7-8.2); TRIGLYCERIDES 242 mg/dL; VLDL CHOLESTEROL 48 mg/dL
[2021-05-30 10:42] LABS: THYROID STIMULATING HORMONE 1.25 uIU/mL (0.34-5.60)
[2021-05-30 11:56] LABS: ESTIMATED AVERAGE GLUCOSE 186 mg/dL (70-100); HEMOGLOBIN A1c% 8.1 % (4.27-6.07)
[2021-05-30 11:59] LABS: CREATININE,URINE 153.7 mg/dL; MICROALBUM/CREATININE RATIO,UR 3.9 ug/mg (<30.0); MICROALBUMIN,URINE 0.6 mg/dL (0-300.0)
== END 2021-05-30 09:53 | disposition home or self-care (01) ==
LOC: LAB 09:52
PROVIDERS: ATTEND Family Medicine
DX: I10 Essential (primary) hypertension (principal); K21.9 Gastro-esophageal reflux disease without esophagitis; F32.A Depression, unspecified; E78.2 Mixed hyperlipidemia; I49.3 Ventricular premature depolarization
CPT/HCPCS: 36415; 80053; 80061; 82043; 82570; 83036; 83721; 84443; 85025

== ENCOUNTER 2021-10-10 10:27 | Outpatient (CLI) | payer BC ==
[2021-10-10 11:01] LABS: ALBUMIN 4.1 g/dL (3.2-5.5); ALBUMIN/GLOBULIN RATIO 1.3 (1.0-2.2); ALKALINE PHOSPHATASE 103 IU/L (42-121); ALT ALANINE AMINOTRANSFERASE 82 IU/L (10-60); AST ASPARTATE AMINOTRANSFERASE 67 IU/L (10-42); BILIRUBIN,TOTAL 0.9 mg/dL (0.2-1.0); BUN - BLOOD UREA NITROGEN 12 mg/dL (6-20); CALCIUM 9.5 mg/dL (8.5-10.3); CARBON DIOXIDE - CO2 27 mmol/L (21-32); CHLORIDE 101 mmol/L (101-111); CHOLESTEROL 264 mg/dL; CREATININE 0.6 mg/dL (0.4-1.0); GFR - MDRD 102 (>89); GLUCOSE 228 mg/dL (70-100); HDL CHOLESTEROL 33 mg/dL; LDL CHOLESTEROL,CALCULATED 172 mg/dL; LDL/HDL RATIO 5.2 (<4.4); POTASSIUM 4.1 mmol/L (3.5-5.0); SODIUM 140 mmol/L (135-145); TOTAL PROTEIN 7.2 g/dL (6.7-8.2); TRIGLYCERIDES 295 mg/dL; VLDL CHOLESTEROL 59 mg/dL
== END 2021-10-10 10:28 | disposition home or self-care (01) ==
LOC: LAB 10:27
PROVIDERS: ATTEND Family Medicine
DX: I10 Essential (primary) hypertension (principal); E11.9 Type 2 diabetes mellitus without complications; E78.2 Mixed hyperlipidemia
CPT/HCPCS: 36415; 80053; 80061; 81599; 83036; 83721

== ENCOUNTER 2021-10-25 10:10 | Outpatient (CLI) | payer BC ==
[2021-10-25 11:33] VITALS: BP 126/72
--- NOTE | 2021-10-25 11:33 | SLEEP CARE CONSULTATION ---
Information from patient questionnaire entered by Yarelis Andrews. I have reviewed and concur with the information entered by Yarelis Andrews. This document represents the service I personally performed and the decisions made by me, Britta Carvalho MD, [facility]. History of Present Illness Service Date and Time: 10/25/2021 1010 Reason for follow up: annual (LAST SEEN 11/2018) HPI additional information: Ms. Sevilla returned today for follow up of nasal CPAP therapy. She was diagnosed to have mild obstructive sleep apnea-hypopnea syndrome. The patient went to [facility] for the equipment and was fitted with a nasal mask. She reports not having used her Resp[employer]ics DreamStation the past 2 years. This is because she gave it to her to use. Once her gets his own machine, she will return to use hers. Allergies and Home Medications Drug allergies reviewed: Yes Home medication list reviewed: Yes Allergy and home medication list: Allergies ciprofloxacin [From Cipro] Allergy (Verified 07/21/17 12:31) Itching ciprofloxacin HCl * [From Cipro] Allergy (Verified 07/21/17 12:31) Itching furosemide [From Lasix] Allergy (Verified 07/21/17 12:31) Anaphylaxis olive oil Allergy (Verified 07/24/17 08:17) Edema tongue swelling omeprazole [From Prilosec] Allergy (Verified 07/21/17 12:31) Anaphylaxis peanut Allergy (Verified 07/21/17 12:31) Anaphylaxis Penicillins Allergy (Verified 07/21/17 12:31) Hives shellfish derived Allergy (Verified 07/21/17 12:31) Hives Fish Containing Products Adverse Reaction (Verified 06/10/19 13:41) Hives ibuprofen Adverse Reaction (Verified 07/21/17 12:31) Headache ct contrast Allergy (Uncoded 07/21/17 12:31) Anaphylaxis Review of Systems Review of systems same as previous: Yes Physical Exam Vital signs obtained and entered by: Debbie ANDREWS MA Blood Pressure: 126/72 (manual) Cuff size: regular Heart Rate: 70 O2 Saturation: 96 Height: 5 ft 5 in Weight: 399 lb 7.642 oz Body Mass Index: 66.4 BMI Classification: Morbidly Obese Impression and Plan IMPRESSION: 1. Obstructive Sleep Apnea-Hypopnea Syndrome, mild (AHI was 5.6 in 2018), with the patient not using her CPAP. She is sleeping with her head elevated and does not have any complaint. PLAN: 1. Prescription made for supplies and sent to [facility]. 2. Try to lose weight 3. I will set her machine to her husbands pressure requirement of 10 15 cmH2 O and lower it back down to 4 8 cmH2O when she gets it back. Prescriptions: Device supplies Follow up with [facility] Care in: 1 year Visit Type: In Office Time Spent with Patient (minutes): 15 Provider Statement: I spent 100% of the Face to Face Visit with the patient with greater than 50% spent counseling the patient and coordination of care.
== END 2021-10-25 10:11 | disposition home or self-care (01) ==
LOC: SC 10:10
PROVIDERS: ATTEND Internal Medicine Pulmonary Disease
DX: G47.33 Obstructive sleep apnea (adult) (pediatric) (principal); E66.01 Morbid (severe) obesity due to excess calories; Z68.44 Body mass index [BMI] 60.0-69.9, adult
CPT/HCPCS: 99212

== ENCOUNTER 2022-04-23 11:17 | Outpatient (CLI) | payer BC ==
[2022-04-23 11:32] LABS: BASOPHILS # (AUTO) 0.1 10^3/uL (0.0-0.1); EOSINOPHILS # (AUTO) 0.2 10^3/uL (0.0-0.7); EOSINOPHILS % (AUTO) 2.7 %; HCT - HEMATOCRIT 49.3 % (37.0-47.0); HGB - HEMOGLOBIN 16.7 g/dL (12.0-16.0); LYMPHOCYTES # (AUTO) 2.6 10^3/uL (1.5-3.5); LYMPHOCYTES % (AUTO) 31.4 %; MEAN CORPUSCULAR HEMOGLOBIN 30.4 pg (27.0-31.0); MEAN CORPUSCULAR HGB CONC 33.9 g/dL (32.0-36.0); MEAN CORPUSCULAR VOLUME 89.8 fL (81.0-99.0); MEAN PLATELET VOLUME 9.5 fL (7.9-10.8); MONOCYTES # (AUTO) 0.6 10^3/uL (0.0-1.0); MONOCYTES % (AUTO) 7.5 %; NEUTROPHILS # (AUTO) 4.8 10^3/uL (1.5-6.6); NEUTROPHILS % (AUTO) 56.9 %; PLT - PLATELET COUNT 184 10^3/uL (130-450); RED BLOOD COUNT 5.49 10^6/uL (4.20-5.40); WHITE BLOOD COUNT 8.4 x10^3/uL (4.8-10.8)
[2022-04-23 11:51] LABS: ALBUMIN 4.2 g/dL (3.2-5.5); ALBUMIN/GLOBULIN RATIO 1.4 (1.0-2.2); ALKALINE PHOSPHATASE 95 IU/L (42-121); ALT ALANINE AMINOTRANSFERASE 62 IU/L (10-60); AST ASPARTATE AMINOTRANSFERASE 63 IU/L (10-42); BILIRUBIN,TOTAL 0.8 mg/dL (0.2-1.0); BUN - BLOOD UREA NITROGEN 13 mg/dL (6-20); CALCIUM 9.6 mg/dL (8.5-10.3); CARBON DIOXIDE - CO2 28 mmol/L (21-32); CHLORIDE 104 mmol/L (101-111); CHOL/HDL RATIO 8.6 (<4.4); CHOLESTEROL 285 mg/dL; CREATININE 0.7 mg/dL (0.4-1.0); GFR - MDRD 85 (>89); GLUCOSE 135 mg/dL (70-100); HDL CHOLESTEROL 33 mg/dL; LDL CHOLESTEROL,CALCULATED 190 mg/dL; LDL/HDL RATIO 5.8 (<4.4); SODIUM 141 mmol/L (135-145); TOTAL PROTEIN 7.3 g/dL (6.7-8.2); TRIGLYCERIDES 309 mg/dL; VLDL CHOLESTEROL 62 mg/dL
[2022-04-23 12:02] LABS: THYROID STIMULATING HORMONE 1.26 uIU/mL (0.34-5.60)
[2022-04-24 12:00] LABS: ESTIMATED AVERAGE GLUCOSE 157 mg/dL (70-100); HEMOGLOBIN A1c% 7.1 % (4.27-6.07)
== END 2022-04-23 11:18 | disposition home or self-care (01) ==
LOC: LAB 11:17
PROVIDERS: ATTEND Family Medicine
DX: I10 Essential (primary) hypertension (principal); E66.3 Overweight; E11.65 Type 2 diabetes mellitus with hyperglycemia; I49.3 Ventricular premature depolarization
CPT/HCPCS: 36415; 80053; 80061; 83036; 83721; 84443; 85025

== ENCOUNTER 2022-12-24 10:13 | Outpatient (CLI) | payer BC ==
[2022-12-24 10:35] LABS: CALCIUM 9.1 mg/dL (8.5-10.3); CREATININE 0.7 mg/dL (0.4-1.0); POTASSIUM 4.2 mmol/L (3.5-5.0)
[2022-12-24 10:38] LABS: CREATININE,URINE 99.9 mg/dL; MICROALBUMIN,URINE 0.3 mg/dL (0-300.0)
[2022-12-24 11:21] LABS: ESTIMATED AVERAGE GLUCOSE 146 mg/dL (70-100); HEMOGLOBIN A1c% 6.7 % (4.27-6.07)
== END 2022-12-24 10:14 | disposition home or self-care (01) ==
LOC: LAB 10:13
PROVIDERS: ATTEND Family Medicine
DX: E11.9 Type 2 diabetes mellitus without complications (principal); I47.1 Supraventricular tachycardia; I49.3 Ventricular premature depolarization; K21.9 Gastro-esophageal reflux disease without esophagitis
CPT/HCPCS: 36415; 80048; 82043; 82570; 83036

== ENCOUNTER 2023-06-18 10:36 | Outpatient (CLI) | payer BC ==
[2023-06-18 10:56] LABS: BASOPHILS # (AUTO) 0.1 10^3/uL (0.0-0.1); BASOPHILS % (AUTO) 1.1 %; EOSINOPHILS # (AUTO) 0.3 10^3/uL (0.0-0.7); EOSINOPHILS % (AUTO) 3.8 %; HCT - HEMATOCRIT 47.1 % (37.0-47.0); HGB - HEMOGLOBIN 16.2 g/dL (12.0-16.0); LYMPHOCYTES # (AUTO) 2.2 10^3/uL (1.5-3.5); LYMPHOCYTES % (AUTO) 31.2 %; MEAN CORPUSCULAR HEMOGLOBIN 30.3 pg (27.0-31.0); MEAN CORPUSCULAR HGB CONC 34.4 g/dL (32.0-36.0); MEAN PLATELET VOLUME 9.5 fL (7.9-10.8); MONOCYTES # (AUTO) 0.5 10^3/uL (0.0-1.0); MONOCYTES % (AUTO) 7.1 %; NEUTROPHILS % (AUTO) 56.4 %; PLT - PLATELET COUNT 184 10^3/uL (130-450); RED BLOOD COUNT 5.35 10^6/uL (4.20-5.40); RED CELL DISTRIBUTION WIDTH 12.1 % (12.0-15.0); WHITE BLOOD COUNT 7.1 x10^3/uL (4.8-10.8)
[2023-06-18 11:25] LABS: ALBUMIN 4.2 g/dL (3.2-5.5); ALBUMIN/GLOBULIN RATIO 1.8 (1.0-2.2); ALKALINE PHOSPHATASE 94 IU/L (42-121); ALT ALANINE AMINOTRANSFERASE 48 IU/L (10-60); AST ASPARTATE AMINOTRANSFERASE 51 IU/L (10-42); BILIRUBIN,TOTAL 0.6 mg/dL (0.2-1.0); BUN - BLOOD UREA NITROGEN 9 mg/dL (6-20); CALCIUM 9.3 mg/dL (8.5-10.3); CARBON DIOXIDE - CO2 26 mmol/L (21-32); CHLORIDE 104 mmol/L (101-111); CHOL/HDL RATIO 7.7 (<4.4); CHOLESTEROL 254 mg/dL; CREATININE 0.6 mg/dL (0.6-1.3); GFR - MDRD 101 (>89); GLUCOSE 155 mg/dL (74-104); HDL CHOLESTEROL 33 mg/dL; LDL CHOLESTEROL,CALCULATED 161 mg/dL; LDL/HDL RATIO 4.9 (<4.4); SODIUM 139 mmol/L (135-145); TOTAL PROTEIN 6.5 g/dL (6.4-8.9); TRIGLYCERIDES 302 mg/dL (48-352); VLDL CHOLESTEROL 60 mg/dL
[2023-06-18 11:38] LABS: THYROID STIMULATING HORMONE 1.11 uIU/mL (0.34-5.60)
[2023-06-20 10:33] LABS: ESTIMATED AVERAGE GLUCOSE 157 mg/dL (70-100); HEMOGLOBIN A1c% 7.1 % (4.27-6.07)
== END 2023-06-18 10:37 | disposition home or self-care (01) ==
LOC: LAB 10:36
PROVIDERS: ATTEND Family Medicine
DX: E11.9 Type 2 diabetes mellitus without complications (principal); I49.8 Other specified cardiac arrhythmias; F32.A Depression, unspecified
CPT/HCPCS: 36415; 80053; 80061; 83036; 83721; 84443; 85025

== ENCOUNTER 2023-10-02 06:52 | Day surgery (SDC) | payer BC ==
[2023-10-02] MEDS: LACTATED RINGERS 1,000 ML IV ONE (07:03)
--- NOTE | 2023-10-02 07:39 | ANESTHESIA ---
Pre-Anesthesia VS, & Labs - Diagnosis screening - Procedure colonoscopy Vital Signs: Temp Pulse Resp BP Pulse Ox O2 Flow Rate 36.4 C L 76 18 144/74 H 96 10/02/23 07:06 10/02/23 07:06 10/02/23 07:06 10/02/23 07:06 10/02/23 07:06 Height: 5 ft 5 in Weight (kg): 79.2 kg Body Mass Index: 29.0 BMI Classification: Overweight - NPO >8 hours Last Fluid Intake: am prep - Is Patient ?: No - Lab Results Current Lab Results: Laboratory Tests 10/02/23 07:16: POC Whole Bld Glucose 189 H Lab results reviewed: Yes Home Medications and Allergies Escitalopram Oxalate [Lexapro] 20 mg PO DAILY 03/14/14 Metoprolol Succinate [Toprol Xl] 25 mg PO BID 03/14/14 metFORMIN [Glucophage] 250 mg PO ACHS 03/14/14 Cholecalciferol (Vitamin D3) [Vitamin D] 5,000 unit PO DAILY 06/17/16 EPINEPHrine [Epipen 2-Matias] 0.3 mg IJ ONCE PRN 06/17/16 predniSONE [Prednisone] 40 mg PO DAILY PRN 07/24/17 Glimepiride 2 mg PO DAILY 06/10/19 Allergies/Adverse Reactions: Allergies Allergy/AdvReac Type Severity Reaction Status Date / Time ciprofloxacin [From Cipro] Allergy Itching Verified 07/21/17 12:31 ciprofloxacin HCl * Allergy Itching Verified 07/21/17 12:31 [From Cipro] furosemide [From Lasix] Allergy Anaphylaxis Verified 07/21/17 12:31 olive oil Allergy Edema Verified 07/24/17 08:17 omeprazole [From Prilosec] Allergy Anaphylaxis Verified 07/21/17 12:31 peanut Allergy Anaphylaxis Verified 07/21/17 12:31 Penicillins Allergy Hives Verified 07/21/17 12:31 shellfish derived Allergy Hives Verified 07/21/17 12:31 Fish Containing Products AdvReac Hives Verified 06/10/19 13:41 ibuprofen AdvReac Headache Verified 07/21/17 12:31 ct contrast Allergy Anaphylaxis Uncoded 07/21/17 12:31 Anes History & Medical History - Anesthetic History Anesthesia Complications: reports: No previous complications Family history of Anesthesia Complications: Denies Family history of Malignant Hyperthermia: Denies - Medical History Cardiovascular: reports: High cholesterol, Arrhythmia (pvc hx) Pulmonary: reports: None Gastrointestinal: reports: GERD Urinary: reports: None Musculoskeletal: reports: Osteoarthritis, Chronic back pain Endocrine/Autoimmune: reports: Type 2 diabetes Skin: reports: None Smoking Status: Current every day smoker - Surgical History Eyes Ears Nose Throat (EENT): reports: Tonsil/Adenoidectomy Gynecologic: reports: Hysterectomy Exam General: Alert, Oriented x3, Cooperative Dental: Dentures full Upper (out), Dentures full Lower (out) Mouth Openin Fingerbreadth Neck Mobility: Normal Mallampati classification: II Thyromental Distance: 4-6 cm Respiratory: Lungs clear, Normal breath sounds, No respiratory distress Cardiovascular: Regular rate (hx PVCs, none on tele pre-op) Neurological: Normal speech Mental/Cognitive Status: Alert/Oriented X3, Normal for patient Cognitive Status: Within normal limits Plan Anesthesia Type: Total IV Consent for Procedure(s) Verified and Reviewed: Yes Code Status: Attempt Resuscitation ASA classification: 2-Mild systemic disease Is this case an emergency?: No
[2023-10-02] MEDS ORDERED: PROPOFOL 500 MG/50 ML 500 MG/50 ML VIAL ONE (08:21)
[2023-10-02] MEDS ORDERED: PROPOFOL 200 MG/20 ML VIAL IVP ONE (08:47)
[2023-10-02] MEDS: LACTATED RINGERS 500 ML IV ONE (09:08)
[2023-10-02 09:33] VITALS: BP 136/75; O2SAT 92
--- NOTE | 2023-10-02 10:57 | ANESTHESIA POST OP EVALUATION ---
Anesthesia Post Eval - Post Anesthesia Eval Vitals: Last Vital Signs Temp 36.4 C L 10/02/23 09:23 Pulse 66 10/02/23 09:23 Resp 16 10/02/23 09:23 BP 136/75 H 10/02/23 09:23 Pulse Ox 92 10/02/23 09:23 O2 Flow Rate CV Function Including HR & BP: Stable Pain Control: Satisfactory Nausea & Vomiting: Negative Mental Status: Baseline Respiratory Status: Airway Patent Hydration Status: Satisfactory Anesthesia Complications: None
== END 2023-10-02 06:53 | disposition home or self-care (01) ==
LOC: SDS 06:52
PROVIDERS: ATTEND Surgery
PROC: 0DBL8ZZ Excision of Transverse Colon, Via Natural or Artificial Opening Endoscopic (ICD-10-PCS; 2023-10-02)
PROC: 0DBK8ZZ Excision of Ascending Colon, Via Natural or Artificial Opening Endoscopic (ICD-10-PCS; principal; 2023-10-02 08:15)
DX: Z12.11 Encounter for screening for malignant neoplasm of colon (principal); D12.3 Benign neoplasm of transverse colon; D12.2 Benign neoplasm of ascending colon; K64.1 Second degree hemorrhoids; F17.210 Nicotine dependence, cigarettes, uncomplicated; Z80.0 Family history of malignant neoplasm of digestive organs; E11.9 Type 2 diabetes mellitus without complications; Z79.84 Long term (current) use of oral hypoglycemic drugs
CPT/HCPCS: 45380; 45385; J7120

== ENCOUNTER 2023-12-16 11:18 | Outpatient (CLI) | payer OTHER ==
[2023-12-16 11:54] LABS: CALCIUM 9.5 mg/dL (8.5-10.3); CREATININE 0.6 mg/dL (0.6-1.3)
[2023-12-16 11:59] LABS: CREATININE,URINE 108.8 mg/dL
[2023-12-16 12:14] LABS: MICROALBUMIN,URINE < 0.7 mg/dL
[2023-12-16 21:47] LABS: ESTIMATED AVERAGE GLUCOSE 174 mg/dL (70-100); HEMOGLOBIN A1c% 7.7 % (4.27-6.07)
== END 2023-12-16 11:19 | disposition home or self-care (01) ==
LOC: LAB 11:18
PROVIDERS: ATTEND Family Medicine
DX: E11.9 Type 2 diabetes mellitus without complications (principal); E66.3 Overweight
CPT/HCPCS: 36415; 80048; 82043; 82570; 83036